=== PATIENT | female | born 1990 ===

== ENCOUNTER 2017-03-11 16:40 | Emergency (ER) | payer OTHER ==
[~2017-03-11] VITALS: Ht 157.5 cm; Wt 59.0 kg
[2017-03-11 17:51] LABS: *BILIRUBIN,URIN NEGATIVE (NEGATIVE); *BLOOD, URINE NEGATIVE (NEGATIVE); *CLARITY,URINE CLEAR (CLEAR); *COLOR,URINE YELLOW (YELLOW); *KETONES,URINE NEGATIVE (NEGATIVE); *PROTEIN,URINE NEGATIVE (NEGATIVE); *UROBILINOGEN,URINE 0.2 E.U./dl (NORMAL); LEUKOCYTE ESTERASE ,URINE 2+ (NEGATIVE); NITRITE, URINE NEGATIVE (NEGATIVE); UGLUCOSE NEGATIVE (NEGATIVE)
[2017-03-11 17:56] LABS: BACTERIA,URINE FEW /HPF (NONE SEEN); RBC,URINE 0-3 /HPF (0-3); SQUAMOUS EPITHELIAL CELL,UR FEW /HPF (NONE SEEN)
[2017-03-11] MEDS ORDERED: PHENAZOPYRIDINE HCL 100 MG TABLET PO ONE (18:30)
[2017-03-11] MEDS ORDERED: NITROFURANTOIN/NITROFURAN MAC 100 MG CAPSULE PO ONE (18:30)
[2017-03-11] MEDS ORDERED: NITROFURANTOIN/NITROFURAN MAC 100 MG CAPSULE ONE (18:53)
[2017-03-11] MEDS ORDERED: PHENAZOPYRIDINE HCL 100 MG TABLET ONE (18:53)
--- NOTE | 2017-03-11 19:18 | NUR ---
MEDS ADMINISTERED, PT AWAITING DISCHARGE, SBAR REPORT TO [facility]
--- NOTE | 2017-03-11 19:25 | NUR ---
Patient discharged to home in stable conditon. Written and verbal after care instructions given. Patient verbalizes understanding of instructions.
== END 2017-03-11 19:26 | disposition home or self-care (01) ==
LOC: ER 16:44
DX: N39.0 Urinary tract infection, site not specified (principal)
CPT/HCPCS: 81001; 87210; 99284; A4663